=== PATIENT | female | born 1990 | race Caucasian/White ===

== ENCOUNTER 2019-01-01 15:07 | Outpatient (REF) | payer BC, SELFPAY ==
[2019-01-01 21:12] LABS: Abs Immature Grans 0.01 k/cumm (0.0-0.09); HCT 37.9 % (36.0-46.0); HGB 13.2 g/dL (12.0-15.5); Mean Corp. HGB Concentration 34.8 g/dL (32.0-36.0); Mean Corpuscular Hemoglobin 31.2 pg (27.0-33.0); Mean Corpuscular Volume 89.6 fL (80-95); Mean Platelet Volume 11.7 fL (8.0-11.0); Platelet Count 245 x1000/uL (130-400); RBC 4.23 m/cumm (4.00-5.20); RBC Distribution Width 12.3 % (11.7-14.6); White Blood Cell Count 5.47 k/cumm (4.4-10.8)
[2019-01-01 21:31] LABS: ALT 23 U/L (12-78); AST 21 U/L (15-37); Alkaline Phosphatase 128 U/L (46-116); Anion Gap 9.1 mmol/L (3-11); BUN 8 mg/dL (7-18); Bilirubin, Total 1.1 mg/dL (0.2-1.0); CO2 29.9 mmol/L (21.0-32.0); CREATININE 0.71 mg/dL (0.55-1.02); Chloride 104 mmol/L (98-107); Glucose 75 mg/dL (70-100); Potassium 3.7 mmol/L (3.5-5.1); Sodium 143 mmol/L (136-145); TSH (W/Ref FT4) 0.71 uIU/mL (0.358-3.74); Total Protein 7.1 g/dL (6.4-8.2); Vitamin B12 857 pg/mL (193-986)
[2019-01-01 21:48] LABS: Lithium 0.21 mmol/L (0.60-1.20)
[2019-01-01 21:54] LABS: Absolute Basophil Count 0.05 k/cumm (0.0-0.2); Absolute Eosinophil Count 0.11 k/cumm (0.0-0.7); Absolute Lymphocyte Count 2.08 k/cumm (1.2-3.4); Absolute Monocyte Count 0.33 k/cumm (0.11-0.7); Atypical Lymphocytes % 10; Diff Comment Manual Differential; RBC Morphology Normal
== END 2019-01-01 15:27 ==
LOC: NCHCN 15:07
PROVIDERS: PCP Nurse Practitioner Family; Visit Provider Nurse Practitioner Family
DX: F31.9 Bipolar disorder, unspecified (principal); F41.1 Generalized anxiety disorder; Z86.59 Personal history of other mental and behavioral disorders; Z51.81 Encounter for therapeutic drug level monitoring; Z79.899 Other long term (current) drug therapy
CPT/HCPCS: 80053; 80178; 82607; 84443; 85025

== ENCOUNTER 2019-01-15 14:18 | Outpatient (REF) | payer BC, SELFPAY ==
[2019-01-15 21:49] LABS: Lithium 0.25 mmol/L (0.60-1.20)
== END 2019-01-15 14:38 ==
LOC: NCHCN 14:18
PROVIDERS: PCP Nurse Practitioner Family; Visit Provider Family Medicine
DX: F31.9 Bipolar disorder, unspecified (principal); Z51.81 Encounter for therapeutic drug level monitoring
CPT/HCPCS: 80178

== ENCOUNTER 2019-01-29 11:54 | Outpatient (REF) | payer BC, SELFPAY ==
[2019-01-29 22:41] LABS: Lithium 0.58 mmol/L (0.60-1.20)
== END 2019-01-29 12:14 ==
LOC: NCHCN 11:54
PROVIDERS: PCP Nurse Practitioner Family; Visit Provider Family Medicine
DX: F31.9 Bipolar disorder, unspecified (principal); Z51.81 Encounter for therapeutic drug level monitoring
CPT/HCPCS: 80178

== ENCOUNTER 2020-03-28 11:32 | Outpatient (REF) | payer BC, SELFPAY ==
[2020-03-28 21:00] LABS: HCT 39.6 % (36.0-46.0); HGB 13.6 g/dL (12.0-15.5); Mean Corp. HGB Concentration 34.3 g/dL (32.0-36.0); Mean Corpuscular Hemoglobin 30.8 pg (27.0-33.0); Mean Corpuscular Volume 89.8 fL (80-95); Mean Platelet Volume 11.8 fL (8.0-11.0); Platelet Count 269 x1000/uL (130-400); RBC 4.41 m/cumm (4.00-5.20); RBC Distribution Width 12.5 % (11.7-14.6); White Blood Cell Count 5.13 k/cumm (4.4-10.8)
[2020-03-28 21:45] LABS: TSH (W/Ref FT4) 1.06 uIU/mL (0.36-3.74)
== END 2020-03-28 11:52 ==
LOC: NCHCN 11:32
PROVIDERS: PCP Nurse Practitioner Family; Visit Provider Family Medicine
DX: N92.0 Excessive and frequent menstruation with regular cycle (principal)
CPT/HCPCS: 85027; 84443

== ENCOUNTER 2020-05-09 15:32 | Outpatient (REF) | payer BC, SELFPAY ==
--- NOTE | 2020-05-09 13:45 | PAPFT_PTH ---
PATIENT: Lauren Walls LOC: [facility] U#:[id number] AGE/SX: 30/F ROOM: RE05/09/[address]: Maty Grady : 1990 BED: DIS: 05/09/2020 SPEC #: [id number] RECD: 05/12/20 13:05 STATUS: GRIS REDeondre #: [id number] MARYANN: 05/09/20 13:[address]: Maty Grady [facility] Cytology RECD BY: Awilda Jacinto ENTERED: 05/12/20 13:05 SP TYPE: PAPFT OTHR DR: Harini Horn Tissues: 1 - CX/ENDOCX FOR PAP SMEARS Procedures: PAP THIN PREP/UVM Screening HPV DNA PROBE Comments: [id number] (CHLAMYDIA/GC)
[2020-05-13 15:39] LABS: Chlamydia Result Negative (Negative); GC Result Negative (Negative)
== END 2020-05-09 15:52 ==
LOC: NCHCN 15:32
PROVIDERS: PCP Nurse Practitioner Family; Visit Provider Family Medicine
DX: Z11.3 Encounter for screening for infections with a predominantly sexual mode of transmission (principal); Z12.4 Encounter for screening for malignant neoplasm of cervix; Z11.51 Encounter for screening for human papillomavirus (HPV)
CPT/HCPCS: 87491; 87591; 88142; 87624

== ENCOUNTER 2020-10-02 15:16 | Outpatient (REF) | payer BC, SELFPAY ==
[2020-10-03 21:38] LABS: COVID-19 RT-PCR UVMMC Result Negative (Negative)
== END 2020-10-02 15:36 ==
LOC: NCHCN 15:16
PROVIDERS: PCP Nurse Practitioner Family; Visit Provider Family Medicine
DX: R11.0 Nausea (principal)
CPT/HCPCS: U0003

== ENCOUNTER 2020-10-03 01:22 | Emergency (ER) | payer BC, SELFPAY ==
[2020-10-03 01:30] VITALS: BP 136/91; PULSE 105; RESP 16; TEMP 36.7; O2SAT 100
--- NOTE | 2020-10-03 01:32 | ED.GENADUL_ITS ---
Discharge Plan Disposition Patient Disposition: HOME Condition: Good Discharge Details Clinical Impression: Acute epigastric pain Primary Care Provider: Harini Horn ED Provider: Den Naranjo [place] Meds and New Rx's Prescriptions: New pantoprazole 40 mg tablet,delayed release (DR/EC) 40 mg PO DAILY Qty: 30 RF: 0 sucralfate 1 gram tablet 1 g PO QACHS Qty: 120 RF: 0 Discontinued ibuprofen 200 mg Tablet 600 mg PO DAILY PRN PRNRF: 0 Discharge Instructions Instructions: GERD (Gastroesophageal Reflux Disease) (ED), Abdominal Pain (ED) Additional Instructions: You should stop using nonsteroidal medications including ibuprofen. For headaches try acetaminophen for the time being. [place] diet for the next few days. Medications as directed. Continue quarantine until Covid results are back. Follow-up with primary care in 1 to 2 weeks. Return to the ED if fever, worsening pain, vomiting, other concerns. Referrals: Harini Horn [Primary Care Provider] - Medical Decision Making This sounds most likely acid related especially given her frequent ibuprofen use. Abdomen is benign to palpation. She is status post cholecystectomy in the past. Doubt pancreatitis. Will place IV and give Reglan and Protonix. Will give oral Carafate. Will check laboratory studies including lipase and reevaluate. There is nothing in her history that necessarily makes me think Covid for which she was tested yesterday. That result is still pending. Patient symptoms significantly better after medications. Laboratory studies unremarkable. Patient will be discharged home with prescriptions for sucralfate and a PPI. Will need to remain quarantined until Covid test back but again we do not suspect this is Covid related. More likely nonsteroidal related and I have asked her to switch to Tylenol as opposed to nonsteroidals for her headaches. Follow-up with primary care in 1 to 2 weeks. Return to ED for problems. Lab Data Lab results reviewed: Yes I reviewed the patient's lab results. HPI General Mode of arrival: ambulatory . Date/Time Provider Initiated Documentation: 10/03/20 01:27 . Limitations to Documentation: no limitations . Information obtained by: patient and RN notes reviewed . HPI Narrative: Patient presents to ED with epigastric abdominal pain that has been bothering her for the last few days. Initially started out as intermittent sharp stabbing pain. Now more persistent dull pain with intermittent sharp pains. She has decreased appetite, early satiety, nausea but no vomiting. She uses ibuprofen on a regular basis for headaches and her menstrual cramps. She does not smoke, consume alcohol has minimal caffeine intake. She denies fever, cough, URI symptoms, chest pain, shortness of breath, lower abdominal pain, pelvic pain, urinary symptoms. She has had what she describes as shaking chills but had normal temperature during then. She did speak to primary care who sent her for Covid testing. She is seeing them for appointment soon. However she has been unable to sleep tonight and has increased pain when lying flat and came into ED. Related Data Home Medications Medication Instructions Recorded Confirmed pantoprazole 40 mg PO DAILY #30 tab 10/03/20 sucralfate 1 g PO QACHS #120 tab 10/03/20 Previous Rx's Medication Instructions Recorded pantoprazole 40 mg PO DAILY #30 tab 10/03/20 sucralfate 1 g PO QACHS #120 tab 10/03/20 Allergies Allergy/AdvReac Type Severity Reaction Status Date / Time No Known Drug Allergies Allergy Unverified 10/03/20 01:50 Review of Systems Narrative: As documented in HPI otherwise negative as below. Const: no fever, weakness Resp: no cough, SOB, pleuritic pain CV: no CP, diaphoresis, edema, syncope GI: no vomiting, diarrhea Neuro: no numbness, focal weakness, confusion PFSH Medical History No significant past medical history Surgical History S/P cholecystectomy Social History Smoking/Tobacco Use Status: Never Smoking risk assessment performed?: Yes Alcohol Intake: current Alcohol Intake frequency: holidays/special occasions only Drug use: Occasionally Substance use type: marijuana Do you feel safe at home: Yes Do you feel safe in your relationship?: Yes Exam Narrative Exam Narrative: Const: WDWN female in NAD. HEENT: NC/AT. Normal facial exam. Eyes: Normal conjunctiva and sclera. Neck: Supple. Trachea midline. Lungs: Normal respiratory effort. Lungs are clear. Cor: RRR without murmur/gallop. Good radial pulses. GI: Soft. NT/ND. No guarding or rebound. Neuro: A+O x 3. Normal speech, mentation, gait. Cranial nerves II - XII grossly intact. No gross motor or sensory deficit. Ext: No C/C/E. Skin: Warm and dry without rash.
[2020-10-03 01:45] VITALS: BP 118/79; PULSE 101; RESP 16; O2SAT 100
[2020-10-03] MEDS: Sucralfate 1 GM TAB PO (02:05)
[2020-10-03 02:06] LABS: Abs Immature Grans 0.05 10^3/uL (0.0-0.06); Absolute Basophil Count 0.03 10^3/uL (0.0-0.2); Absolute Lymphocyte Count 1.84 10^3/uL (1.2-3.4); Absolute Monocyte Count 0.44 10^3/uL (0.1-0.8); Absolute Neutrophil Count 2.83 10^3/uL (1.2-6.7); Basophils % 0.6; Eosinophils % 1.9; HGB 13.9 g/dL (11.2-15.7); Immature Grans % 0.9; Lymphocytes % 34.8; MCHC 35.6 % (32.0-36.0); MCV 87.1 fL (80-95); MPV 11.1 fL (8.0-11.0); Monocytes % 8.3; Neutrophils % 53.5; Nucleated RBC 0 %; Platelet Count 246 10^3/uL (130-400); RBC 4.48 10^6/uL (3.93-5.22); RDW 11.9 % (11.7-14.6); RDW-SD 37.7 fL; WBC 5.29 10^3/uL (4.4-10.8)
[2020-10-03] MEDS: Metoclopramide 10 MG/2 ML VIAL IVP (02:09)
[2020-10-03] MEDS: Normal Saline Flush 10 ML SYR IVP (02:11)
[2020-10-03] MEDS: Pantoprazole 40 MG VIAL IVP (02:13)
[2020-10-03 02:15] VITALS: BP 104/87; PULSE 78; RESP 16; O2SAT 100
[2020-10-03 02:16] LABS: HCG Qual (Serum) Negative
[2020-10-03 02:21] LABS: ALT 20 U/L (14-59); AST 17 U/L (15-37); Albumin 4.7 g/dL (3.4-5.0); Alkaline Phosphatase 134 U/L (46-116); Anion Gap 8.5 mmol/L (3-11); BUN 8 mg/dL (7-18); Bilirubin, Total 1.2 mg/dL (0.2-1.0); CO2 28.5 mmol/L (21.0-32.0); CREATININE 0.71 mg/dL (0.55-1.02); Chloride 103 mmol/L (98-107); Glucose 106 mg/dL (74-106); Lipase 125 U/L (73-393); Potassium 3.6 mmol/L (3.5-5.1); Sodium 140 mmol/L (136-145); Total Protein 8.1 g/dL (6.4-8.2)
[2020-10-03 02:50] VITALS: BP 114/57; PULSE 88; RESP 16; O2SAT 100
== END 2020-10-03 02:55 | disposition home or self-care (01) ==
PROVIDERS: Emergency Provider Emergency Medicine; PCP Family Medicine
DX: R10.13 Epigastric pain (principal)
CPT/HCPCS: 36415; 80053; 81025; 83690; 96374; 96375; 99284; 84703; 85025; J2765

== ENCOUNTER 2021-03-02 01:12 | Outpatient (CLI) | payer BC, SELFPAY ==
--- NOTE | 2021-03-02 | DI.MRI_ITS ---
Exam(s) MR IAC BRAIN WO/W EXAM: MR IAC BRAIN WO/W CLINICAL HISTORY: MIXED HEARING LOSS LT EAR,UNILATERAL HEARING LOSS,VERTIGO TECHNIQUE: Multiplanar multisequence MRI of the brain was performed. Both noninfused and contrast i nfused sequences were performed. IAC protocol was performed. Also performed high-resolution sub mil limeter slice T2 weighted sequence through the internal auditory canals. IV Contrast injected was 13 cc Dotarem. COMPARISON: No prior brain imaging studies available time this interpretation. FINDINGS: CEREBRAL PARENCHYMA: No evidence of intracranial hemorrhage, mass effect nor shift of midline structu re. No extraaxial fluid collections. Ventricles are not enlarged nor shifted. There is no significant focal signal abnormality in the cerebellar hemispheres nor within the antony, m idbrain, and thalami. There is no abnormal signal abnormality in the periventricular white matter. There are no ring enhancing lesions in the brain. There is no abnormal meningeal enhancement. Incid entally noted is a benign venous angioma extending from the region of the sylvian fissures to the lef t lateral ventricle. No associated hemorrhage in this region or elsewhere in the brain. INTERNAL AUDITORY CANALS: There is no evidence of mass in the cerebellopontine angles on either side nor evidence of intra canalicular mass. The 7th and 8th nerves are evident and normal appearing in b oth internal auditory canals. There is no abnormal enhancement within the internal auditory canals. Trigeminal-5th nerves appear unremarkable bilaterally is a head anterior towards Meckel's cave. PITUITARY GLAND: No mass nor parasellar abnormality. No obvious abnormality in the cavernous sinuses. FLOW VOIDS: The expected flow void are noted. No evidence of obvious aneurysm nor obvious vascular ma lformation. PARANASAL SINUSES: The visualized paranasal sinuses appear unremarkable. ORBITS: No obvious abnormal findings. IMPRESSION: 1. No significant intracranial findings on this MRI scan of the brain. 2. No abnormal enhancing intracranial findings. 3. There are no masses in the cerebellopontine angles and there is no evidence of intra canalicular acoustic neuroma/schwannoma. DATA REPOSITORY:
[2021-03-02] MEDS: Normal Saline Flush 10 ML SYR IVP (15:10)
[2021-03-02] MEDS: Gadoterate meglumine 20 ML VIAL 13 ML IVP (15:11)
[2021-03-02 15:14] LABS: BUN 15 mg/dL (7-18); CREATININE 0.6 mg/dL (0.55-1.02)
== END 2021-03-02 01:32 ==
PROVIDERS: PCP Family Medicine; Visit Provider Physician Assistant
DX: H90.72 Mixed conductive and sensorineural hearing loss, unilateral, left ear, with unrestricted hearing on the contralateral side (principal); Z01.812 Encounter for preprocedural laboratory examination; R42 Dizziness and giddiness
CPT/HCPCS: 70553; 84520; 82565

== ENCOUNTER 2021-03-02 02:28 | Outpatient (CLI) | payer BC, SELFPAY ==
[2021-03-02 11:17] LABS: Source Nasal/Nares
[2021-03-02 15:19] LABS: COVID-19 PCR Negative (Negative)
== END 2021-03-02 02:29 | disposition home or self-care (01) ==
LOC: LBO 02:28
PROVIDERS: PCP Family Medicine; Visit Provider Surgery
DX: Z20.822 Contact with and (suspected) exposure to COVID-19 (principal); Z01.818 Encounter for other preprocedural examination
CPT/HCPCS: 87635

== ENCOUNTER 2021-03-04 06:05 | Day surgery (SDC) | payer BC, SELFPAY ==
[2021-03-04 06:25] VITALS: BP 122/69; PULSE 96; RESP 18; TEMP 37; O2SAT 99
[2021-03-04] MEDS: Lactated Ringers 1,000 ML 80 ML IV (06:44)
--- NOTE | 2021-03-04 06:50 | W.PM.HP.N ---
Date of service: 03/04/21 Time of Service: 06:50 Assessment and Plan Assessment and plan (1) GERD (gastroesophageal reflux disease): Status: Chronic Assessment and plan: To OR for EGD with possible biopsies. Risks and benefits of procedure, including not limited to, bleeding, infection, perforation, missed small lesion, were explained to the patient. She is understanding of the risks and wishes to proceed. History of Present Illness History of Present Illness Chief Complaint: GERD Narrative: 31-year-old female with ongoing GERD symptoms since September 2020 presents for outpatient EGD. She had a 2-month course of PPI, famotidine and Carafate. However symptoms resume when she stopped taking the medication. Review of Systems All systems reviewed & are unremarkable except as noted in HPI and below PFSH Medical History Epigastric pain No significant past medical history Rectal fissure Surgical History S/P cholecystectomy Social History Smoking/Tobacco Use Status: Never Smoking risk assessment performed?: Yes Alcohol Intake: former Drug use: Rarely Substance use type: marijuana Current gender identity: female Do you feel safe at home: Yes Do you feel safe in your relationship?: Yes Meds Allergies and Home Medications Allergies Allergy/AdvReac Type Severity Reaction Status Date / Time Opioids - Morphine Analogues Allergy Unknown none Verified 03/04/21 06:28 listed on referral Home Medications Medication Instructions Recorded Confirmed Type cholecalciferol (vitamin D3) 50 50 mcg PO DAILY 02/04/21 03/04/21 History mcg (2,000 unit) capsule cyanocobalamin (vitamin B-12) 1,000 mcg PO DAILY 02/04/21 03/04/21 History 1,000 mcg capsule multivitamin 1 tab PO DAILY 02/04/21 03/04/21 History polyethylene glycol 3350 17 17 g PO BID 02/04/21 03/04/21 History gram/dose oral powder famotidine 40 mg tablet 40 mg PO DAILY 02/26/21 03/04/21 History sucralfate 1 gram tablet 1 g PO QACHS #120 tab 02/26/21 03/04/21 Rx melatonin 3 mg PO HS PRN 03/04/21 03/04/21 History Exam Resp Effort & Inspection: normal respiratory effort, able to speak in complete sentences and no use of accessory muscles Cardio Jugular venous pressure: no JVD Rate: regular rate Rhythm: regular rhythm Results Last Vital Signs Temp 98.6 F 03/04/21 06:25 Pulse 96 H 03/04/21 06:25 Resp 18 03/04/21 06:25 BP 122/69 03/04/21 06:25 Pulse Ox 99 03/04/21 06:25
--- NOTE | 2021-03-04 06:56 | W.ANESPRE ---
General Info Date of Service Date Performed: 03/04/21 Height: 5 ft 5 in Weight: 66.3 kg Body Mass Index (BMI): 24.3 Surgical Procedure: Operation Date: 03/04/21 07:35 Proposed Procedures Side Surgeon p Gastroscopy Zana Dumont DO Meds Allergies and Home Medications Allergies Allergy/AdvReac Type Severity Reaction Status Date / Time Opioids - Morphine Analogues Allergy Unknown none Verified 03/04/21 06:28 listed on referral Home Medication Medication Instructions Recorded cholecalciferol (vitamin D3) 50 50 mcg PO DAILY 02/04/21 mcg (2,000 unit) capsule cyanocobalamin (vitamin B-12) 1,000 mcg PO DAILY 02/04/21 1,000 mcg capsule multivitamin 1 tab PO DAILY 02/04/21 polyethylene glycol 3350 17 17 g PO BID 02/04/21 gram/dose oral powder famotidine 40 mg tablet 40 mg PO DAILY 02/26/21 sucralfate 1 gram tablet 1 g PO QACHS #120 tab 02/26/21 melatonin 3 mg PO HS PRN 03/04/21 Current Visit Medications: Current Medications Generic Name Dose Route Start Last Admin Trade Name Freq PRN Reason Stop Dose Admin Ringer's Solution 1,000 mls @ 80 mls/hr 03/04/21 06:00 03/04/21 06:44 IV 04/02/21 23:59 80 mls/hr INFUSION COLT Administration IV Miscellaneous Supplies 1 each 03/04/21 06:00 Iv Access IV 04/02/21 23:59 DIRECTED COLT Sodium Chloride 0 ml 03/04/21 06:00 Normal Saline Flush 10 Ml Syr IV 04/02/21 23:59 PRN PRN Sodium Chloride 0 ml 03/04/21 06:00 Normal Saline 10 Ml Vial IJ 04/02/21 23:59 DIRECTED PRN Sterile Water 0 ml 03/04/21 06:00 Water,Injection,Sterile 10 Ml Vial IJ 04/02/21 23:59 DIRECTED PRN PFSH Active Problems Active Problems: Problem Status Onset Code GERD (gastroesophageal reflux disease) K21.9 Epigastric pain R10.13 Tinnitus of left ear H93.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 Nonintractable episodic headache R51.9 Vertigo R42 Medical History Medical History Epigastric pain No significant past medical history Rectal fissure Surgical History Surgical History S/P cholecystectomy Tobacco Smoking/Tobacco Use Status: Never Alcohol Alcohol Intake: former Substance Use Substance use: Rarely Substance use type: marijuana Vital Signs and Lab Results Vital Signs Most Recent Vital Signs in EMR: Most Recent Vital Signs Temp Pulse Resp BP Pulse Ox 37 C 96 H 18 122/69 99 03/04/21 06:25 03/04/21 06:25 03/04/21 06:25 03/04/21 06:25 03/04/21 06:25 Lab Results Blood Type / Crossmatch: No Data to Display Complete Blood Count: No Data to Display Complete Metabolic Panel: Blood Urea Nitrogen 15 mg/dL (7-18) 03/02/21 14:40 03/02/21 Creatinine 0.6 mg/dL (0.55-1.02) 03/02/21 14:40 03/02/21 Liver Function Panel: No Data to Display Coagulation Panel: No Data to Display Cardiac Panel: No Data to Display Arterial Blood Gas: No Data to Display Venous Blood Gas: No Data to Display Pancreas Panel: No Data to Display Thyroid Panel: No Data to Display Infectious Disease: Coronavirus (COVID-19)(PCR) Negative (Negative) 03/02/21 11:00 03/02/21 Coronavirus 2019 Source Nasal/nares 03/02/21 11:00 03/02/21 Blood Cultures: No Data to Display Toxicology Panel: No Data to Display Panel: No Data to Display Anesthesia Assessment and Plan Anesthesia History Personal History: PONV Family History: No Family History of Anesthesia Complications Exercise Tolerance Exercise Tolerance: Metabolic Equivalents>4 Pertinent Negatives Pertinent Negatives: No Symptoms of GERD, No Major Cardiovascular Symptoms or Complaints, No Major Pulmonary Symptoms or Complaints and No History of CVA/TIA Cardiac & Pulmonary Exam Cardiac Exam: Normal S1/S2 Heart Sounds Pulmonary Exam: Clear Bilateral Breath Sounds Airway Exam Known Difficult Airway: No Mallampati Class: 2 Mouth Opening: Normal (> 3cm) Thyromental Distance: Greater than 3 cm Neck Range of Motion: Full ROM Neck Circumference: Normal Teeth Condition: Normal Dentition ASA Classification ASA Score: ASA 1 Emergency Case?: No NPO Status NPO Status: NPO Clears >2 hours, Solids >8 hours Status Status: Negative HCG Anesthesia Plan Resuscitation Status: Full Code Anesthesia Technique: General Anesthesia Airway Planned: Natural Airway Monitors Used: Standard Monitors
[2021-03-04 07:07] VITALS: BMI 24.3
--- NOTE | 2021-03-04 07:50 | STOM_PTH ---
PATIENT: Lauren Walls LOC: [facility] U#:[id number] AGE/SX: 31/F ROOM: RE03/04/[address]: Zana Dumont : 1990 BED: DIS: 03/04/2021 SPEC #: [id number] RECD: 03/04/21 12:53 STATUS: GRIS REQ #: [id number] MARYANN: 03/04/21 07:[address]: Zana Dumont DEPT: Surgical Specimen RECD BY: Awilda Jacinto ENTERED: 03/04/21 12:54 SP TYPE: STOMACH OTHR DR: Maty Grady Tissues: 1 - STOMACH BIOPSY Procedures: GROSS AND MICRO LEVEL 4 Comments: [id number]
--- NOTE | 2021-03-04 07:55 | W.PM.OP ---
Date of service: 03/04/21 Time of Service: 07:55 Operative Note Operative Note Preoperative diagnosis: GERD Postop diagnosis: Mild antral gastritis, small hiatal hernia Surgeon: Zana Dumont DO Anesthesia: MAC Estimated blood loss: 2 mL Complications: None apparent Indication procedure: There is a very pleasant 31-year-old female was been having GERD symptoms since September 2020. She underwent a 2-month course of omeprazole and Carafate which relieved her symptoms. However when she stopped taking medication the symptoms came back. She is currently taking famotidine and Carafate which seems to be working. EGD was indicated. The risks benefits procedure, including manometry, bleeding, infection, perforation, missed lesion were explained the patient. She understand the risks and wished to proceed. Description of procedure: After adequate anesthesia was achieved both from anesthesia the gastroscope was obtained and placed into the oral cavity. It was an easily advanced into the esophagus and down into the stomach. The scope was then advanced into the duodenum, and all the way to the third portion of the duodenum. I examined all schmidt of the visible duodenum. There is no ulceration. There were no other lesions. There was some very mild antral gastritis which I took a cold forceps biopsy of and sent for H. pylori. Retroflexion view revealed a very small hiatal hernia and no other lesions. I then withdrew the scope and examined the GE junction, which was clean and pristine. Photos were taken. Initially [id number] while examining the esophagus. No lesions were identified. Patient tolerated the procedure well.
[2021-03-04 08:00] VITALS: BP 114/67; PULSE 87; RESP 14; TEMP 36.4; O2SAT 99
--- NOTE | 2021-03-04 08:00 | W.PM.DS.N ---
Date of service: 03/04/21 Time of Service: 08:00 DS: Diagnosis Discharge Diagnosis (1) GERD (gastroesophageal reflux disease): Status: Chronic Discharge Plan Disposition Patient Disposition: HOME Condition: Good Discharge Details Attending Provider: Zana Dumont Primary Care Provider: Maty Grady Home Meds and New Rx's Prescriptions: No Action famotidine 40 mg tablet 40 mg PO DAILY RF: 0 sucralfate 1 gram tablet 1 g PO QACHS Qty: 120 RF: 0 polyethylene glycol 3350 [Miralax] 17 gram/dose powder 17 g PO BID RF: 0 multivitamin Tablet 1 tab PO DAILY RF: 0 cholecalciferol (vitamin D3) 50 mcg (2,000 unit) capsule 50 mcg PO DAILY RF: 0 cyanocobalamin (vitamin B-12) 1,000 mcg capsule 1,000 mcg PO DAILY RF: 0 melatonin 3 mg Capsule 3 mg PO HS PRNRF: 0 Discharge Instructions Additional Instructions: No driving or operating heavy machinery today. Otherwise no restrictions Activity:: Activity as Tolerated Shower/Bathe:: 24 hours Diet:: As Tolerated Discharge Data Discharge Date/Time-TO BE ENTERED AT DEPARTURE: 03/04/21 08:03 DS: Summary Time Spent with Patient providing and/or coordinating discharge services: Less than 30 minutes Status at Discharge Functional status at discharge: independent ambulation Overall status at discharge: patient is back to baseline Mental Status: mental status grossly normal Speech and Movement: speech and movement normal Mood: congruent mood Affect: normal affect Exam Psych Mental Status: mental status grossly normal Speech and Movement: speech and movement normal Mood: congruent mood Affect: normal affect DS: Data Vitals/I&O Vitals and I&O: Vital Signs Temperature 98.6 F 03/04/21 06:25 Pulse 96 H 03/04/21 06:25 Pulse Rhythm Regular 03/04/21 06:25 Respiratory Rate 18 03/04/21 06:25 Respiratory Depth Deep 03/04/21 06:25 Blood Pressure 122/69 03/04/21 06:25 Pulse Oximetry 99 03/04/21 06:25 Oxygen Delivery Method Room Air 03/04/21 06:25 Oxygen Flow Rate 0 03/04/21 06:25 Pain Level 1 03/04/21 06:25 Intake & Output 03/03/21 03/03/21 03/04/21 11:59 23:59 11:59 Intake Total 300 / 300 Balance 300 / 300 Weight 67.812 kg 66.3 kg Intake: IV 300 / 300 PFS Medical History Epigastric pain No significant past medical history Rectal fissure Surgical History S/P cholecystectomy Social History Smoking/Tobacco Use Status: Never Smoking risk assessment performed?: Yes Alcohol Intake: former Drug use: Rarely Substance use type: marijuana Current gender identity: female Do you feel safe at home: Yes Do you feel safe in your relationship?: Yes
--- NOTE | 2021-03-04 08:01 | W.ANESPOSTOP ---
Postoperative Evaluation Date, Time and Location Date Performed: 03/04/21 Time Performed: 08:03 Patient Location: Day Surgery Unit Vital Signs Most Recent Imported Vital Signs: Most Recent Vital Signs Temp Pulse Resp BP Pulse Ox 37 C 96 H 18 122/69 99 03/04/21 06:25 03/04/21 06:25 03/04/21 06:25 03/04/21 06:25 03/04/21 06:25 Most Recent Manually Entered Vital Signs: Adult Blood Pressure: 114/67 Heart Rate: 87 Respirations: 16 Oxygen Saturation (%): 100 Temperature (C): 36.4 C Pain Score (0-10 Scale): 0 Pain Score Most Recent Pain Score: Most Recent Pain Score Pain Level 1 03/04/21 06:25 Assessment Mental Status: Awake (Alert & Oriented to Patient Baseline) Airway and Respiratory Function: Patent airway with normal (patient baseline) respiratory exam Cardiovascular Function: Hemodynamically Stable Hydration Status: Adequately Hydrated Nausea & Vomiting: No Nausea or Vomiting Pain: Pt. Denies Any Pain Peripheral Nerve Block: Patient did not receive a nerve block
[2021-03-04 08:03] VITALS: BP 114/67; PULSE 87; RESP 16; TEMPC 36.4; O2SAT 100
[2021-03-04 08:35] VITALS: BP 115/66; PULSE 78; RESP 18; TEMP 36.5; O2SAT 100
== END 2021-03-04 08:54 | disposition home or self-care (01) ==
LOC: SUR 06:05
PROVIDERS: PCP Family Medicine; Visit Provider Surgery
PROC: 0DJ68ZZ Inspection of Stomach, Via Natural or Artificial Opening Endoscopic (ICD-10-PCS; CPT 43235; principal; 2021-03-04 07:30)
DX: K21.9 Gastro-esophageal reflux disease without esophagitis (principal); K44.9 Diaphragmatic hernia without obstruction or gangrene; K29.70 Gastritis, unspecified, without bleeding
CPT/HCPCS: 43239; 88305; J2001

== ENCOUNTER 2023-04-29 05:31 | Emergency (ER) | payer OTHER, SELFPAY ==
--- NOTE | 2023-04-29 06:00 | RT.EKG_ITS ---
APPROVED REPORT Exam: Resting ECG Reason for Exam: fluttering Patient Location: E HR:84 bpm ECG Measurements Heart Rate 84 AXIS AR 154 P 71 QRSd 82 QRS 63 QT 341 T 47 QTc 403 Conclusion Sinus rhythm...normal P axis, V-rate 60- 99 Sinus rhythm. No prior. WD
[2023-04-29 06:03] VITALS: BP 135/88; PULSE 107; RESP 17; O2SAT 98
[2023-04-29] MEDS: Ondansetron 4 MG/2 ML VIAL IVP (06:10)
--- NOTE | 2023-04-29 06:12 | ED.GENADUL_ITS ---
Discharge Plan Disposition Patient Disposition: Home Discharge Details Clinical Impression: Heart palpitations, Nausea Primary Care Provider: Maty Grady ED Provider: Stephie Ramirez Home Meds and New Rx's Prescriptions: New ondansetron 4 mg tablet,disintegrating 4 mg PO Q6H PRNQty: 14 0RF No Action polyethylene glycol 3350 [Miralax] 17 gram/dose powder 17 g PO BID multivitamin Tablet 1 tab PO DAILY cholecalciferol (vitamin D3) 50 mcg (2,000 unit) capsule 50 mcg PO DAILY cyanocobalamin (vitamin B-12) 1,000 mcg capsule 1,000 mcg PO DAILY sucralfate 1 gram tablet 1 g PO QACHS Qty: 120 0RF pantoprazole 40 mg tablet,delayed release (DR/EC) 40 mg PO DAILY Qty: 30 0RF melatonin 3 mg Capsule 3 mg PO HS PRN Discharge Instructions Instructions: Heart Palpitations (ED), Acute Nausea and Vomiting (ED) Referrals: Maty Grady [Primary Care Provider] - 2 days Discharge Data Discharge Physician: Stephie Ramirez Medical Decision Making 33-year-old female presents for evaluation of fluttering sensation in her chest, hunger pains, and increased rest. At time my evaluation she is tearful and tachycardic. Her heart rate increased substantially while speaking with me. I did go back down after we finished talking. EKG unremarkable. Laboratory studies including TSH and troponin are unremarkable. Patient was given IV fluids and Zofran with resolution of symptoms. Patient is reassured with findings. I will send in a short prescription for Zofran. She will follow-up with primary care. She understands indications to return. HPI General Date/Time Provider Initiated Documentation: 04/29/23 05:37 . HPI Narrative: 33-year-old female with history of bipolar disorder presents for evaluation of palpitations and possible low blood sugar. Patient states that she has been under some increased stress lately and has not been eating very well. She has longstanding difficulty with some intermittent hunger pains that wake her from sleep and take a long time to resolve even if she eats. She states that she woke up this morning with the sensation of fluttering in her chest and hunger pains. This is similar to what she has experienced in the past. She attempted to eat without any improvement. She did smokes marijuana. She eventually had resolution of the fluttering sensation. She however then felt nauseous. She states that she currently feels that she is having a trauma response. She takes [id number] supplements but is not on any prescription medications at this time. She states that her bipolar medications were not working and she needs to follow-up to start new medication. Denies any increased urinary frequency, dysuria, gross hematuria. She has had increased urinary frequency with the fluttering sensation at night in the past currently denies any chest pain or shortness of breath. Her sister does have a history of hypoglycemia. There is also family history of atrial fibrillation. Patient states that she has been tested every couple of years for thyroid disease or other disorders however has not had any blood work done recently. She does carry prior diagnosis of gastritis and had an endoscopy in the past. Related Data Home Medications Medication Instructions Recorded Confirmed cholecalciferol (vitamin D3) 50 50 mcg PO DAILY 02/04/21 04/29/23 mcg (2,000 unit) capsule cyanocobalamin (vitamin B-12) 1,000 mcg PO DAILY 02/04/21 04/29/23 1,000 mcg capsule multivitamin 1 tab PO DAILY 02/04/21 04/29/23 polyethylene glycol 3350 17 17 g PO BID 02/04/21 04/29/23 gram/dose oral powder (Miralax) melatonin 3 mg capsule 3 mg PO HS PRN 03/04/21 04/29/23 sucralfate 1 gram tablet 1 g PO QACHS #120 tabs 04/10/21 04/29/23 pantoprazole 40 mg tablet,delayed 40 mg PO DAILY GERD #30 tabs 06/09/21 04/29/23 release ondansetron 4 mg disintegrating 4 mg PO Q6H PRN #14 tabs 04/29/23 tablet Previous Rx's Medication Instructions Recorded sucralfate 1 gram tablet 1 g PO QACHS #120 tabs 04/10/21 pantoprazole 40 mg tablet,delayed 40 mg PO DAILY GERD #30 tabs 06/09/21 release ondansetron 4 mg disintegrating 4 mg PO Q6H PRN #14 tabs 04/29/23 tablet Allergies Allergy/AdvReac Type Severity Reaction Status Date / Time Opioids - Morphine Analogues Allergy Unknown none Verified 05/14/21 14:35 listed on referral General Stated Complaint: Abd Prob BARRY: 3 Review of Systems Narrative: Remainder of review of systems otherwise negative except for as noted in the HPI x 10. PFSH All Active Problems (Updated 04/29/23 @ 07:11 by Stephie Ramirez MD) Heart palpitations (Acute) Nausea (Acute) GERD (gastroesophageal reflux disease) (Chronic) Epigastric pain (Acute) Tinnitus of left ear (Acute) Mixed conductive and sensorineural hearing loss of left ear (Acute) Nonintractable episodic headache (Acute) Vertigo (Acute) Medical History Epigastric pain No significant past medical history Rectal fissure Surgical History S/P cholecystectomy Social History Smoking/Tobacco Use Status: Never Smoking risk assessment performed?: Yes Alcohol Intake: former Drug use: Rarely Substance use type: marijuana Current gender identity: female Do you feel safe at home: Yes Do you feel safe in your relationship?: Yes Exam Narrative Exam Narrative: General: non-toxic, no respiratory distress, tearful HEENT: normocephalic, atraumatic, lids and lashes normal, PERRL, EOMI, anicteric sclera, no conjunctival injection, moist oral mucosa Card: Tachycardic, regular, S1S2, no murmurs, rubs, or gallops Lungs: good air entry, clear to auscultation bilaterally. no wheezes, rales, rhonchi, or retractions Abd: soft, non-tender, non-distended, normal bowel sounds, no rebound or guarding, no peritoneal signs Musculoskeletal: full range of motion of arms and legs, no tenderness to palpation. no clubbing, cyanosis, or edema Neurologic: appropriate for age, strength normal Psych: alert and oriented, anxious Skin: no petechiae, no lesions, warm and dry Course Vital Signs Vital signs: Vital Signs Pulse 107 H 04/29/23 06:03 Respiratory Rate 17 04/29/23 06:03 Blood Pressure 135/88 04/29/23 06:03 Pulse Oximetry 98 04/29/23 06:03 Pulse 107 H 04/29/23 06:03 Respiratory Rate 17 04/29/23 06:03 Respiratory Effort Normal 04/29/23 05:43 Blood Pressure 135/88 04/29/23 06:03 Pulse Oximetry 98 04/29/23 06:03 Oxygen Delivery Method Room Air 04/29/23 06:03 Oxygen Flow Rate 0 04/29/23 06:03
[2023-04-29 06:24] LABS: Abs Immature Grans 0.01 10^3/uL (0.0-0.06); Absolute Basophil Count 0.02 10^3/uL (0.0-0.2); Absolute Eosinophil Count 0.09 10^3/uL (0.0-0.7); Absolute Lymphocyte Count 1.54 10^3/uL (1.2-3.4); Absolute Monocyte Count 0.44 10^3/uL (0.1-0.8); Absolute Neutrophil Count 4.53 10^3/uL (1.2-6.7); Basophils % 0.3; Eosinophils % 1.4; HCT 39.2 % (36.0-46.0); HGB 13.8 g/dL (11.2-15.7); Immature Grans % 0.2; Lymphocytes % 23.2; MCH 30.5 pg (27.0-33.0); MCHC 35.2 % (32.0-36.0); MCV 87 fL (80-95); MPV 10.7 fL (8.0-11.0); Monocytes % 6.6; Neutrophils % 68.3; Platelet Count 273 10^3/uL (130-400); RBC 4.53 10^6/uL (3.93-5.22); RDW 11.9 % (11.7-14.6); RDW-SD 37.7 fL; WBC 6.63 10^3/uL (4.4-10.8)
[2023-04-29] MEDS: Normal Saline 1,000 ML 1000 ML IV (06:25)
[2023-04-29 06:30] VITALS: BP 116/69; PULSE 92; RESP 14; O2SAT 100
[2023-04-29 06:44] LABS: HCG Qual (Serum) Negative
[2023-04-29 06:55] LABS: ALT 17 U/L (14-59); AST 16 U/L (15-37); Albumin 4.3 g/dL (3.4-5.0); Alkaline Phosphatase 184 U/L (46-116); Anion Gap 8.5 mmol/L (3-11); BUN 9 mg/dL (7-18); Bilirubin, Total 0.7 mg/dL (0.2-1.0); CO2 29.5 mmol/L (21.0-32.0); CREATININE 0.7 mg/dL (0.55-1.02); Calcium 9.6 mg/dL (8.5-10.1); Chloride 105 mmol/L (98-107); Estimated GFR 116.31 (mL/min/1.73m2); Glucose 105 mg/dL (74-106); Lipase 51 U/L (16-77); Potassium 3.8 mmol/L (3.5-5.1); Sodium 143 mmol/L (136-145); TSH (W/Ref FT4) 1.63 uIU/mL (0.36-3.74); Troponin I < 50 ng/L (<or=60)
[2023-04-29 07:18] LABS: Bilirubin Negative (Negative); Blood Trace-lysed (Negative); Clarity Clear (Clear); Glucose Negative (Negative); Ketones Negative (Negative); Leukocyte Esterase Negative (Negative); Nitrite Negative (Negative); Specific Gravity 1.015 (1.005-1.025); Urobilinogen 0.2 mg/dL (Up to 0.2)
--- NOTE | 2023-04-29 07:21 | DI.RAD_ITS ---
Exam(s) XR CHEST 2V PA LATERAL EXAM: XR CHEST 2V PA LATERAL CLINICAL HISTORY: chest pain TECHNIQUE: 2D digital imaging was performed. COMPARISON: No exams were available for comparison FINDINGS: HEART: Normal size. Aorta: Not dilated. PULMONARY VASCULATURE: Normal. LUNGS: Clear. PLEURAL SPACE: No pleural effusion or pneumothorax. BONE:Unremarkable for age. IMPRESSION: No acute abnormality. DATA REPOSITORY: RADIATION DOSE DELIVERED:
[2023-04-29 07:24] LABS: Bacteria Negative HPF (Negative); C & S Indicated? No; Casts Negative LPF (Negative); Crystals Negative HPF (Negative); Epithelial Cells Rare HPF (Negative); Mucus Negative (Negative); RBC 0-2 HPF (0-2); WBC Negative HPF (0-5)
[2023-04-29 07:29] VITALS: BP 99/58; PULSE 92; RESP 18; TEMP 36.7; O2SAT 100
--- NOTE | 2023-04-29 08:19 | DI.VRAD_ITS ---
PROCEDURE INFORMATION: Exam: XR Chest Exam date and time: 04/29/2023 7:18 AM Age: 33 years old Clinical indication: Other: Chest pain TECHNIQUE: Imaging protocol: Radiologic exam of the chest. Views: 2 views. COMPARISON: No relevant prior studies available. FINDINGS: Lungs: Unremarkable. No consolidation. Pleural spaces: Unremarkable. No pleural effusion. No pneumothorax. Heart/Mediastinum: Unremarkable. No cardiomegaly. Bones/joints: Unremarkable. IMPRESSION: No acute findings. Dictated and Authenticated by: Marlene Ponce MD. Ordering:AJ Card MD
== END 2023-04-29 08:02 | disposition home or self-care (01) ==
PROVIDERS: Emergency Provider Emergency Medicine Emergency Medical Services; PCP Family Medicine
DX: R00.2 Palpitations (principal); R11.10 Vomiting, unspecified
CPT/HCPCS: 80053; 82962; 83690; 93005; 96361; 96374; 99284; 71046; 81003; 81015; 83735; 84443; 84484; 84703; 85025; 93010; J2405

== ENCOUNTER 2023-06-02 03:20 | Emergency (ER) | payer OTHER, SELFPAY ==
[2023-06-02] VITALS (7 sets, daily range): BP systolic 113–119; BP diastolic 58–89; PULSE 74–117; RESP 13–17; TEMP 36.5; O2SAT 97–100
--- NOTE | 2023-06-02 03:30 | RT.EKG_ITS ---
APPROVED REPORT Exam: Resting ECG Reason for Exam: chest pain Patient Location: E HR:83 bpm ECG Measurements Heart Rate 83 AXIS MT 149 P 64 QRSd 86 QRS 67 QT 363 T 56 QTc 428 Conclusion Sinus rhythm...normal P axis, V-rate 60- 99
[2023-06-02] MEDS: Normal Saline 500 ML 1000 ML IV (03:40)
--- NOTE | 2023-06-02 03:41 | ED.GENADUL_ITS ---
Discharge Plan Disposition Patient Disposition: Home Condition: Stable Discharge Details Clinical Impression: Anxiety, Chest pain Primary Care Provider: Maty Grady ED Provider: Fei Anderson Home Meds and New Rx's Prescriptions: New lorazepam 1 mg tablet 1 mg PO BID PRN (Reason: anxiety) Qty: 14 0RF Continued multivitamin Tablet 1 tab PO DAILY cholecalciferol (vitamin D3) 50 mcg (2,000 unit) capsule 50 mcg PO DAILY cyanocobalamin (vitamin B-12) 1,000 mcg capsule 1,000 mcg PO DAILY melatonin 3 mg Capsule 3 mg PO HS PRN ondansetron 4 mg tablet,disintegrating 4 mg PO Q6H PRNQty: 14 0RF famotidine 20 mg Tablet 20 mg PO DAILY Discharge Instructions Instructions: Anxiety (ED) Additional Instructions: Your ekg and blood work did not show concerning findings follow up with your primary care provider within 1-[address] if you take the lorazepam if you feel more ill, have severe worsening pain or difficulty breathing return to the emergency department Medical Decision Making 33 yo female with hx of anxiety/panic attacks, gerd, who comes in with cc of feeling intermittent panic attacks for the past day. She states she has not had an appetite due to this and states when she gets anxious she'll have chest pain. She denies fevers, chills, dyspnea, vomiting. She arrives hemodynmically stable speaking in full sentences with clear speech. She does appear anxious, clear lungs, no murmurs. Her presentation is consistent with anxiety/panic attack, will treat with ativan and reassess. Given her chest pain will also check ekg/troponin, cbc, cmp. She has no evidence of dvt on exam and no hypoxia so doubt PE, HR 90 on my exam. She has no tearing back pain and pulses are equal in both arms so doubt dissection. labs unremarkable, pt sleeping but awakens easily to voice, feels better, stable vitals. Given over 3 hours of symptoms do not feel delta troponin indicated. Advised to f/u with her pcp, will provide a short course of lorazepam and return precautions given Differential Diagnosis Differential Diagnosis: anxiety, panic attack Medical Records Medical records reviewed: Yes I reviewed the patient's medical records. Lab Data Lab results reviewed: Yes I reviewed the patient's lab results. ECG Data Attestation: I personally reviewed and interpreted this ECG (s) as follows: Prior ECG tracings: available for review Interpretation: sinus rate of 83, pr 149 no stemi HPI General Mode of arrival: ambulatory . Date/Time Provider Initiated Documentation: 06/02/23 03:22 . Limitations to Documentation: no limitations . Information obtained by: patient . History of Present Illness 33 year old F presents to the emergency department with the chief complaint of anxious/panic attack, described as moderate, Patient started experiencing this day(s) (1) and it has been intermittent. No relieving factors improve symptom(s), No exacerbating factors reported . Patient notes chest pain; denies fever/chills and shortness of breath. Patient did receive the following treatments prior to arrival, none Related Data Home Medications Medication Instructions Recorded Confirmed cholecalciferol (vitamin D3) 50 50 mcg PO DAILY 02/04/21 06/02/23 mcg (2,000 unit) capsule cyanocobalamin (vitamin B-12) 1,000 mcg PO DAILY 02/04/21 06/02/23 1,000 mcg capsule multivitamin 1 tab PO DAILY 02/04/21 06/02/23 melatonin 3 mg capsule 3 mg PO HS PRN 03/04/21 06/02/23 ondansetron 4 mg disintegrating 4 mg PO Q6H PRN #14 tabs 04/29/23 06/02/23 tablet famotidine 20 mg tablet 20 mg PO DAILY 06/02/23 06/02/23 lorazepam 1 mg tablet 1 mg PO BID PRN anxiety #14 tabs 06/02/23 Previous Rx's Medication Instructions Recorded ondansetron 4 mg disintegrating 4 mg PO Q6H PRN #14 tabs 04/29/23 tablet lorazepam 1 mg tablet 1 mg PO BID PRN anxiety #14 tabs 06/02/23 Allergies Allergy/AdvReac Type Severity Reaction Status Date / Time Opioids - Morphine Analogues Allergy Unknown none Verified 06/02/23 03:30 listed on referral General Stated Complaint: Anxiety BARRY: 3 Review of Systems All systems reviewed & are unremarkable except as noted in HPI and below Constitutional Constitutional: Denies chills, Denies fever(s) and Denies weakness Cardiovascular Cardiovascular: Reports chest pain Respiratory Respiratory: Denies cough Gastrointestinal Gastrointestinal: Denies vomiting Genitourinary Genitourinary: Denies dysuria Integumentary/Breasts Skin/Breast: Denies rash Neurologic Neurologic: Denies weakness Psychiatric Psychiatric: Reports anxiety PFSH All Active Problems (Updated 06/02/23 @ 04:30 by Fei Anderson MD) Anxiety (Chronic) Chest pain (Acute) GERD (gastroesophageal reflux disease) (Chronic) Epigastric pain (Acute) Tinnitus of left ear (Acute) Mixed conductive and sensorineural hearing loss of left ear (Acute) Nonintractable episodic headache (Acute) Vertigo (Acute) Medical History Epigastric pain No significant past medical history Rectal fissure Surgical History S/P cholecystectomy Social History Smoking/Tobacco Use Status: Never Smoking risk assessment performed?: Yes Alcohol Intake: former Drug use: Rarely Substance use type: marijuana Current gender identity: female Do you feel safe at home: Yes Do you feel safe in your relationship?: Yes Exam Const General: no acute distress and anxious Orientation: alert HENMT Head: normal to inspection Ears: external ears normal General nose exam: external nose normal Mouth: moist mucous membranes Eyes General: appearance normal, both eyes and all related structures Neck Neck: normal visual inspection Resp Effort & Inspection: normal respiratory effort and able to speak in complete sentences Auscultation: clear to auscultation bilaterally Cardio Jugular venous pressure: no JVD Rate: regular rate Heart Sounds: no murmurs GI Palpation: soft and nontender Skin General skin exam: no rashes or lesions noted Neuro General: patient alert and patient oriented x3 Extrem General: normal to inspection Psych Mental Status: mental status grossly normal Course Vital Signs Vital signs: Vital Signs Temperature 36.5 C 06/02/23 03:26 Pulse 117 H 06/02/23 03:26 Respiratory Rate 16 06/02/23 03:26 Blood Pressure 119/89 06/02/23 03:26 Pulse Oximetry 100 06/02/23 03:26 Temperature 36.5 C 06/02/23 03:26 Temperature Source Oral 06/02/23 03:26 Pulse 117 H 06/02/23 03:26 Respiratory Rate 16 06/02/23 03:26 Respiratory Effort Normal 06/02/23 03:26 Blood Pressure 119/89 06/02/23 03:26 Blood Pressure Position Sitting 06/02/23 03:26 Pulse Oximetry 100 06/02/23 03:26 Oxygen Delivery Method Room Air 06/02/23 03:26 Oxygen Flow Rate 0 06/02/23 03:26 Pain Level 0 06/02/23 03:26
[2023-06-02 03:47] LABS: Abs Immature Grans 0.03 10^3/uL (0.0-0.06); Absolute Basophil Count 0.05 10^3/uL (0.0-0.2); Absolute Eosinophil Count 0.06 10^3/uL (0.0-0.7); Absolute Lymphocyte Count 1.69 10^3/uL (1.2-3.4); Absolute Monocyte Count 0.56 10^3/uL (0.1-0.8); Absolute Neutrophil Count 7.23 10^3/uL (1.2-6.7); Basophils % 0.5; Eosinophils % 0.6; HCT 41.8 % (36.0-46.0); HGB 15.1 g/dL (11.2-15.7); Immature Grans % 0.3; Lymphocytes % 17.6; MCH 31.2 pg (27.0-33.0); MCHC 36.1 % (32.0-36.0); MCV 86 fL (80-95); MPV 9.9 fL (8.0-11.0); Monocytes % 5.8; Neutrophils % 75.2; Platelet Count 331 10^3/uL (130-400); RBC 4.84 10^6/uL (3.93-5.22); RDW-SD 37.6 fL; WBC 9.62 10^3/uL (4.4-10.8)
[2023-06-02] MEDS: LORazepam 2 MG/ML VIAL 1 MG IVP (03:56)
[2023-06-02 04:04] LABS: HCG Qual (Serum) Negative
[2023-06-02 04:12] LABS: ALT 20 U/L (14-59); AST 15 U/L (15-37); Albumin 4.6 g/dL (3.4-5.0); Alkaline Phosphatase 154 U/L (46-116); Anion Gap 8.4 mmol/L (3-11); BUN 9 mg/dL (7-18); Bilirubin, Total 1.2 mg/dL (0.2-1.0); CO2 29.6 mmol/L (21.0-32.0); CREATININE 0.7 mg/dL (0.55-1.02); Calcium 9.6 mg/dL (8.5-10.1); Chloride 103 mmol/L (98-107); Estimated GFR 116.31 (mL/min/1.73m2); Glucose 125 mg/dL (74-106); Potassium 3.8 mmol/L (3.5-5.1); Sodium 141 mmol/L (136-145); TSH (W/Ref FT4) 1.75 uIU/mL (0.36-3.74); Total Protein 8.4 g/dL (6.4-8.2); Troponin I < 50 ng/L (<or=60)
== END 2023-06-02 04:40 | disposition home or self-care (01) ==
PROVIDERS: Emergency Provider Emergency Medicine; PCP Family Medicine
DX: F41.0 Panic disorder [episodic paroxysmal anxiety] (principal); R07.9 Chest pain, unspecified
CPT/HCPCS: 36415; 80053; 93005; 96361; 96374; 99284; 83735; 84443; 84484; 84703; 85025; 93010; J2060

== ENCOUNTER 2023-09-07 11:45 | Outpatient (REF) | payer OTHER, SELFPAY ==
[2023-09-08 14:20] LABS: Chlamydia Result Negative (Negative); GC Result Negative (Negative)
== END 2023-09-07 11:46 | disposition home or self-care (01) ==
LOC: LBN 11:45
PROVIDERS: PCP Family Medicine; Visit Provider Obstetrics & Gynecology
DX: Z11.3 Encounter for screening for infections with a predominantly sexual mode of transmission (principal)
CPT/HCPCS: 87491; 87591